=== PATIENT | male | born 1960 | race American Indian/Alaskan Native ===

== ENCOUNTER 2017-08-05 10:40 | Emergency (ER) | payer OTHER ==
[2017-08-05 10:59] VITALS: BP 168/86
--- NOTE | 2017-08-05 12:25 | Emergency Department Report ---
HPI - General Chief Complaint: Medical Clearance Time Seen by Provider: 08/05/17 12:22 - HPI HPI: 57-year-old -[place] male with a past medical history of hypertension S currently on lisinopril 20 mg of Hydrocort Diastat 12.5 mg and by systolic 5 mg. He comes in for reports of lack of energy. Patient denies any fever chills no nausea no vomiting denies any pain at all. He denies any dizziness or altered mental status. ED Past Medical Hx - Past Medical History Previous Medical History?: Yes Hx Hypertension: Yes - Surgical History Past Surgical History?: No - Social History Smoking Status: Never Smoker Substance Use Type: None ED Review of Systems ROS: Stated complaint: NOT FEELING GOOD Other details as noted in HPI Physical Exam - Physical Exam Vital Signs: Vital Signs 08/05/17 10:54 Temperature 98.4 F Pulse Rate 75 Respiratory 16 Rate Blood Pressure 168/86 O2 Sat by Pulse 99 Oximetry Physical Exam: GENERAL: Alert and oriented x3, no apparent distress, Normal Gait, atraumatic. HEAD: Head is normocephalic and a-traumatic. EYES: Extra ocular muscles are intact. Pupils are equal, round, and reactive to light and accommodation. EARS: symetrical, atraumatic, non tender, ear canal clear and moderate cerumen, tympanic membrance non inflamed. gross auditory nml bilaterally. NOSE: Nose symetrical, Nontender,Nares appeared normal. MOUTH:Mouth is well hydrated and without lesions. Tonsils nonerythematous or swollen, Uvula midline, Tongue not elevated. Mucous membranes are moist. Posterior pharynx clear, no exudate or lesions. Patent airways. NECK: Supple. Non edematous, No carotid bruits. No lymphadenopathy or thyromegaly. LUNGS: Symetrical with respiration, No wheezing, no rales or crackles, CTAB. HEART: S1, S2 present, regular rate and rhythm without murmur, no rubs, no gallops. ABDOMEN: No organomegaly was noted,Positive bowel sounds, soft, and non- distended. . Nontender to palpation on all Quadrants, NO CVA tenderness. EXTREMITIES/MUSCULOSKELETAL: No cyanosis, clubbing, rash, lesions or edema. Full ROM bilaterally. UE/LE Pulses 2+ bilaterally. LE and UE 5+ strength bilaterally NEUROLOGIC: No focal Deficit, Cranial nerves II through XII are grossly intact. No loss of sensation, No facial droop, Negative rhomberg. PSYCHIATRIC: Mood is congruent with affect, denies suicidal or homicidal ideations. SKIN: Warm and dry, No lesions, No ulceration or induration present ED Course Vital Signs 08/05/17 10:54 Temperature 98.4 F Pulse Rate 75 Respiratory 16 Rate Blood Pressure 168/86 O2 Sat by Pulse 99 Oximetry ED Medical Decision Making - Lab Data Result diagrams: 08/05/17 12:26 08/05/17 12:26 Critical care attestation.: If time is entered above; I have spent that time in minutes in the direct care of this critically ill patient, excluding procedure time. ED Disposition Clinical Impression: Low energy Disposition: DC-01 TO HOME OR SELFCARE Is pt being admited?: No Does the pt Need Aspirin: No Condition: Stable Additional Instructions: Please follow up with your PCP Dr. Ramirez. If symptoms persist or get worst. Referrals: TATY RAMIREZ MD [Referring] - 3-5 Days PRIMARY CAREMD [Primary Care Provider] - 3-5 Days ANDI RAMIREZ MD [Referring] - 3-5 Days Forms: Work/School Release Form(ED)
[2017-08-05 12:45] LABS: Basophils % (Auto) 0.4 % (0.0-1.8); Eosinophils % (Auto) 0.3 % (0.0-4.3); Hematocrit 47.9 % (35.5-45.6); Hemoglobin 15.8 gm/dl (11.8-15.2); Lymphocytes # (Auto) 1.9 K/mm3 (1.2-5.4); Lymphocytes % (Auto) 18.4 % (13.4-35.0); Mean Corpuscular HGB Conc 33 % (32-34); Mean Corpuscular Hemoglobin 29 pg (28-32); Mean Corpuscular Volume 87 fl (84-94); Monocytes # (Auto) 0.8 K/mm3 (0.0-0.8); Monocytes % (Auto) 7.9 % (0.0-7.3); Platelet Count 269 K/mm3 (140-440); Red Blood Count 5.54 M/mm3 (3.65-5.03); Red Cell Distribution Width 14.5 % (13.2-15.2)
--- NOTE | 2017-08-05 12:49 | Emergency Department Report ---
ED Medical Clearance HPI - General Chief complaint: Medical Clearance Stated complaint: NOT FEELING GOOD Time Seen by Provider: 08/05/17 12:22 Source: patient Mode of arrival: Ambulatory - History of Present Illness Initial comments: 57-year-old -[place] male with a past medical history of hypertension S currently on lisinopril 20 mg of Hydrocort Diastat 12.5 mg and by systolic 5 mg. He comes in for reports of lack of energy. Patient denies any fever chills no nausea no vomiting denies any pain at all. He denies any dizziness or altered mental status. He is followed by Dr. Ramirez in [place]. Allergies/Adverse reactions: Allergies Allergy/AdvReac Type Severity Reaction Status Date / Time No Known Allergies Allergy Unverified 08/05/17 10:58 ED Review of Systems ROS: Stated complaint: NOT FEELING GOOD Other details as noted in HPI Constitutional: denies: chills, fever Eyes: denies: eye pain, eye discharge, vision change ENT: denies: ear pain, throat pain Respiratory: denies: cough, shortness of breath, wheezing Cardiovascular: denies: chest pain, palpitations Endocrine: no symptoms reported Gastrointestinal: denies: abdominal pain, nausea, diarrhea Genitourinary: denies: urgency, dysuria Musculoskeletal: denies: back pain, joint swelling, arthralgia Skin: denies: rash, lesions Neurological: denies: headache, weakness, paresthesias Psychiatric: denies: anxiety, depression Hematological/Lymphatic: denies: easy bleeding, easy bruising ED Past Medical Hx - Past Medical History Previous Medical History?: Yes Hx Hypertension: Yes - Surgical History Past Surgical History?: No - Social History Smoking Status: Never Smoker Substance Use Type: None ED Physical Exam - General Limitations: No Limitations General appearance: alert, in no apparent distress - Head Head exam: Present: atraumatic, normocephalic - Eye Eye exam: Present: normal appearance - ENT ENT exam: Present: mucous membranes moist - Neck Neck exam: Present: normal inspection - Respiratory Respiratory exam: Present: normal lung sounds bilaterally. Absent: respiratory distress - Cardiovascular Cardiovascular Exam: Present: regular rate, normal rhythm. Absent: systolic murmur, diastolic murmur, rubs, gallop - GI/Abdominal GI/Abdominal exam: Present: soft, normal bowel sounds - Rectal Rectal exam: Present: deferred - Extremities Exam Extremities exam: Present: normal inspection - Back Exam Back exam: Present: normal inspection - Neurological Exam Neurological exam: Present: alert, oriented X3 - Psychiatric Psychiatric exam: Present: normal affect, normal mood - Skin Skin exam: Present: warm, dry, intact, normal color. Absent: rash ED Course Vital Signs 08/05/17 10:54 Temperature 98.4 F Pulse Rate 75 Respiratory 16 Rate Blood Pressure 168/86 O2 Sat by Pulse 99 Oximetry ED Medical Decision Making - Radiology Data Patient has been seen by this provider in [facility]. He only reports of lack of energy since Friday. Denies any of complaint. Discuss with patient we will check UA, CBC and CMP. If all come back normal patient will need to follow up with his PCP. Patient verbalized understanding. - Medical Decision Making Patient has been evaluated by this provider. Patient comes in for complaints that he has low energy. Discuss with patient that I will check a few labs. If normal he needs to follow up with his PCP Dr. Ramirez from [place]. Patient verbalized understanding. ED Disposition Clinical Impression: Low energy Disposition: DC-01 TO HOME OR SELFCARE Is pt being admited?: No Does the pt Need Aspirin: No Condition: Stable Additional Instructions: Please follow up with your PCP Dr. Ramirez. If symptoms persist or get worst. Referrals: PRIMARY CARE, [Primary Care Provider] - 3-5 Days TATY RAMIREZ MD [Referring] - 3-5 Days ANDI RAMIREZ MD [Referring] - 3-5 Days Forms: Work/School Release Form(ED)
[2017-08-05 12:58] LABS: Bilirubin,Urine NEG (Negative); Blood,Urine SM (Negative); Color,Urine Yellow (Yellow); Mucus,Urine FEW /HPF; Protein,Urine <15 mg/dL mg/dL (Negative); Urobilinogen,Urine < 2.0 mg/dL (<2.0)
[2017-08-05 13:01] LABS: BUN/Creatinine Ratio 13; Blood Urea Nitrogen 13 mg/dL (9-20); Calcium 9.6 mg/dL (8.4-10.2); Hemolysis Index 15
== END 2017-08-05 13:54 | disposition home or self-care (01) ==
LOC: ED 10:40
DX: R53.83 Other fatigue (principal)
CPT/HCPCS: 36415; 80048; 81001; 85025; 93005; 93010; 99283